=== PATIENT | female | born 2000 | race Caucasian/White ===

== ENCOUNTER 2022-03-07 23:34 | Inpatient (IN) ==
[2022-03-07] MEDS ORDERED: LACTATED RINGERS 250 ML IV PRN (23:45)
[2022-03-07] MEDS ORDERED: OXYTOCIN/LR 20 UNIT/1,000 ML BAG IV ONE (23:45)
[2022-03-07] MEDS ORDERED: BUTORPHANOL 2 MG/ML VIAL IV PRN (23:45)
[2022-03-07] MEDS ORDERED: TRANEXAMIC ACID 1,000 MG in SODIUM CHLORIDE 0.9% 100 ML IV PRN (23:45)
[2022-03-07] MEDS ORDERED: METHYLERGONOVINE 0.2 MG/1 ML AMP IM PRN (23:45)
[2022-03-07] MEDS ORDERED: ACETAMINOPHEN 500 MG TABLET PO PRN (23:45)
[2022-03-07] MEDS ORDERED: BUTORPHANOL 1 MG/ML VIAL IV PRN (23:45)
[2022-03-07] MEDS ORDERED: CARBOPROST TROMETHAMINE 250 MCG/ML AMP IM PRN (23:45)
[2022-03-07] MEDS ORDERED: miSOPROStoL 200 MCG TABLET RECTAL PRN (23:45)
[2022-03-07] MEDS ORDERED: MEPERIDINE 50 MG/1 ML VIAL IV PRN ×2 (23:45→23:51)
[2022-03-08 00:11] LABS: Basophils # 0.1 10*3/uL (0.0-0.2); Basophils % 0.6 % (0.0-0.8); Eosinophils # 0.3 10*3/uL (0.0-0.87); Eosinophils % 2.5 % (0.00-10.9); Hematocrit 33.1 VOL% (35.7-47.0); Immature Granulocytes % 0.6 %; Immature Granulocytes Absolute 0.06 #; Lymphocytes # 2.4 10*3/uL (1.4-4.0); Lymphocytes % 23.7 % (21.3-54.2); Mean Corpuscular HGB Conc 33.2 GM/DL (32-36); Mean Corpuscular Volume 81.7 FL (87-102); Mean Platelet Volume 10.1 FL (9.6-12.0); Monocytes # 0.8 10*3/uL (0.11-0.8); Monocytes % 7.5 % (1.7-12.7); Neutrophils % 65.1 % (38.7-73.9); Platelet Count 241 T/CUMM (130-400); Red Blood Count 4.05 MC/CUMM (3.8-5.5); Red Cell Distribution Width 12.9 % (9.3-17.3); White Blood Count 10.2 T/CUMM (4-12)
[2022-03-08 00:50] LABS: Albumin 3.1 G/DL (3.4-5.0); Bilirubin,Total 0.5 MG/DL (0.20-1.00); Calcium 8.3 MG/DL (8.5-10.1); Potassium 4.1 MMOL/L (3.5-5.1); Total Protein 6.8 G/DL (6.4-8.2)
[2022-03-08] MEDS ORDERED: AMPICILLIN INJ 2,000 MG in SODIUM CHLORIDE 0.9% 100 ML IV ONE (01:00)
[2022-03-08] MEDS: LACTATED RINGERS 1,000 ML IV SCH ×2 (01:03→12:56)
[2022-03-08] MEDS: AMPICILLIN INJ 1,000 MG in SODIUM CHLORIDE 0.9% 100 ML IV SCH ×4 (05:22→17:53)
[2022-03-08] MEDS: ONDANSETRON 4 MG/2 ML VIAL IV PRN ×2 (07:56→13:42)
[2022-03-08] MEDS ORDERED: FAMOTIDINE 20 MG/2 ML VIAL IV ONE (09:03)
[2022-03-08] MEDS ORDERED: diphenhydrAMINE 50 MG/1 ML VIAL IV PRN ×2 (09:03)
[2022-03-08] MEDS ORDERED: CITRIC ACID/SODIUM CITRATE 30 ML UDCUP PO ONE (09:03)
[2022-03-08] MEDS ORDERED: hydrOXYzine HCL 25 MG/1 ML VIAL IM PRN (09:03)
[2022-03-08] MEDS ORDERED: NALOXONE 0.4 MG/ML VIAL IV PRN (09:03)
[2022-03-08] MEDS ORDERED: PROMETHAZINE 25 MG/1 ML VIAL IM ONE (09:03)
[2022-03-08] MEDS ORDERED: ePHEDrine 50 MG/ML VIAL IV PRN (09:03)
[2022-03-08] MEDS ORDERED: LACTATED RINGERS 1,000 ML IV ONE (09:03)
[2022-03-08] MEDS ORDERED: OXYTOCIN/LR 20 UNIT/1,000 ML BAG IV SCH (09:15)
[2022-03-08] MEDS: LABETALOL 100 MG TABLET PO SCH ×2 (09:31→21:08)
[2022-03-08] MEDS: fentaNYL 2 MCG/ROPIV 0.2% EPID 100 ML EPIDURAL SCH ×2 (10:15→16:45)
[2022-03-08 11:29] LABS: Bilirubin,Urine Negative (Negative); Blood, Urine Trace mg/dL (Negative); Glucose,Urine (UA) Negative (Negative); Ketones,Urine Negative (Negative); Mucus,Urine Occasional /LPF (Occasional); Nitrite,Urine Negative (Negative); Protein,Urine Negative (Negative); Squamous Epithelial Cell,Urine Occasional /HPF (0-10); Urine Appearance Clear (Clear); Urine Color Yellow (Yellow); Urine Specific Gravity 1.015 (1.001-1.035); Urine Urobilinogen 0.2 eU/dL (<2.0); Urine pH 6.5 (4.5-8.0)
[2022-03-08] MEDS ORDERED: miSOPROStoL 200 MCG TABLET ONE (16:32)
[2022-03-08] MEDS ORDERED: CARBOPROST TROMETHAMINE 250 MCG/ML AMP IM ONE (16:33)
[2022-03-08] MEDS ORDERED: METHYLERGONOVINE 0.2 MG/1 ML AMP ONE (16:33)
[2022-03-08] MEDS ORDERED: TERBUTALINE 1 MG/1 ML VIAL SUBCUT ONE (17:18)
[2022-03-08] MEDS ORDERED: TERBUTALINE 1 MG/1 ML VIAL ONE (17:19)
[2022-03-08 18:16] LABS: Cord Arterial Blood HCO3 21.6 MMOL/L
[2022-03-08 18:19] LABS: Cord Venous Blood HCO3 22.4 MMOL/L; Cord Venous Blood PCO2 42.6 MMHG; Cord Venous Blood PO2 33.2
[2022-03-08] MEDS ORDERED: LANOLIN 50% CREAM 0.3 OZ TUBE TOP PRN (21:35)
[2022-03-08] MEDS ORDERED: MEASLES/MUMPS/RUBELLA VACCINE 0.5 ML VIAL SUBCUT ONE (21:35)
[2022-03-08] MEDS ORDERED: BISACODYL 10 MG SUPP RECTAL PRN (21:35)
[2022-03-08] MEDS ORDERED: HYDROCORTISONE 2.5% RECTAL CREAM 30 GM TUBE TOP PRN (21:35)
[2022-03-08] MEDS ORDERED: DIPH/TET/ACEL PERT BOOSTER VACCINE 0.5 ML VIAL IM ONE (21:35)
[2022-03-08] MEDS ORDERED: oxyCODONE/ACETAMINOPHEN 5-325 MG TABLET PO PRN (21:35)
[2022-03-08] MEDS ORDERED: RHO(D) IMMUNE GLOBULIN 300 MCG SYRINGE IM ONE (21:35)
[2022-03-08] MEDS ORDERED: OXYTOCIN/LR 20 UNIT/1,000 ML BAG IV ONE (21:35)
[2022-03-08] MEDS ORDERED: WITCH HAZEL PADS 100/JAR TOP PRN (21:35)
[2022-03-08] MEDS ORDERED: ACETAMINOPHEN 325 MG TABLET PO PRN (21:35)
[2022-03-08] MEDS ORDERED: BENZOCAINE 20%/MENTHOL 0.5% SPRAY 56 GM CAN TOP PRN (21:35)
[2022-03-08] MEDS: DOCUSATE SODIUM 100 MG CAPSULE PO SCH (22:28)
[2022-03-09] MEDS: IBUPROFEN 800 MG TABLET PO PRN ×4 (00:51→22:38)
[2022-03-09 05:12] LABS: Basophils # 0.1 10*3/uL (0.0-0.2); Basophils % 0.3 % (0.0-0.8); Eosinophils # 0.1 10*3/uL (0.0-0.87); Eosinophils % 0.8 % (0.00-10.9); Hematocrit 29.3 VOL% (35.7-47.0); Hemoglobin 9.7 GM/DL (12.0-16.0); Immature Granulocytes % 0.5 %; Immature Granulocytes Absolute 0.08 #; Lymphocytes # 1.6 10*3/uL (1.4-4.0); Lymphocytes % 9.7 % (21.3-54.2); Mean Corpuscular HGB Conc 33.1 GM/DL (32-36); Mean Corpuscular Volume 81.8 FL (87-102); Mean Platelet Volume 10.5 FL (9.6-12.0); Neutrophils % 82.7 % (38.7-73.9); Platelet Count 205 T/CUMM (130-400); Red Blood Count 3.58 MC/CUMM (3.8-5.5); Red Cell Distribution Width 12.8 % (9.3-17.3); White Blood Count 16.6 T/CUMM (4-12)
[2022-03-09] MEDS: DOCUSATE SODIUM 100 MG CAPSULE PO SCH ×2 (08:51→22:33)
[2022-03-09] MEDS: oxyCODONE/ACETAMINOPHEN 5-325 MG TABLET PO PRN (22:39)
[2022-03-10] MEDS: oxyCODONE/ACETAMINOPHEN 5-325 MG TABLET PO PRN (00:10)
[2022-03-10] MEDS: DOCUSATE SODIUM 100 MG CAPSULE PO SCH (08:01)
[2022-03-10] MEDS: IBUPROFEN 800 MG TABLET PO PRN (08:02)
[2022-03-10 08:28] VITALS: BP 135/84
== END 2022-03-10 12:00 | disposition home or self-care (01) | DRG 807 ==
LOC: N.LD 23:34 → N.OB 03-08 21:35
PROVIDERS: ADMIT Obstetrics & Gynecology; ATTEND Obstetrics & Gynecology